=== PATIENT | male | born 1980 ===

== ENCOUNTER 2025-02-11 10:05 | Emergency (ER) | payer OTHER ==
[~2025-02-11] VITALS: Ht 188 cm; Wt 75.0 kg
[2025-02-11 10:08] VITALS: TEMP 98
[2025-02-11] MEDS ORDERED: BICT1TAB PO (10:10)
[2025-02-11 10:35] VITALS: BP 133/92; PULSE 102; RESP 18; O2SAT 99
== END 2025-02-11 12:29 | disposition left against medical advice (07) ==
LOC: EMS 10:05
DX: R68.84 Jaw pain (principal); Z53.21 Procedure and treatment not carried out due to patient leaving prior to being seen by health care provider
CPT/HCPCS: 99281; Z7502